=== PATIENT | male | born 1995 | race Caucasian/White ===

== ENCOUNTER 2018-02-07 16:20 | Emergency (ER) | payer OTHER, BC ==
[2018-02-07 16:26] VITALS: BP 146/77
[2018-02-07] MEDS ORDERED: CIPROFLOXACIN 250 MG TABLET PO STA (16:32)
--- NOTE | 2018-02-07 16:35 | ED Physician Documentation ---
PD HPI LOWER EXT INJURY - Stated complaint Stated Complaint: STEPPED ON NAIL R FT PX/SWELLING - Chief complaint Chief Complaint: Ext Problem - History obtained from History obtained from: Patient - History of Present Illness PD HPI LOW EXT INJURY LOCATION: Right, Foot Type of injury: Puncture wound (He stepped on a nail at work 2 days ago and has persistent pain. He is up-to-date on tetanus. No fevers.) Review of Systems Constitutional: denies: Fever, Chills Throat: reports: Reviewed and negative Cardiac: reports: Reviewed and negative PD PAST MEDICAL HISTORY - Past Medical History Past Medical History: No - Past Surgical History Past Surgical History: Yes - Present Medications Home Medications: Ambulatory Orders Medication Instructions Recorded Confirmed Ciprofloxacin HCl [Cipro] 500 mg PO BID #20 tablet 02/07/18 - Allergies Allergies/Adverse Reactions: Allergies Allergy/AdvReac Type Severity Reaction Status Date / Time No Known Drug Allergies Allergy Verified 02/07/18 16:34 - Social History Does the pt smoke?: Yes Smoking Status: Current every day smoker Does the pt drink ETOH?: Yes ETOH Use: Beer, Liquor Does the pt have substance abuse?: Yes Substance Use and Type: Marijuana - Immunizations Immunizations are current?: Yes - POLST Patient has POLST: No PD ED PE NORMAL - Vitals Vital signs reviewed: Yes - General General: Alert and oriented X 3, No acute distress - Extremities Extremities: Other (There is a puncture wound on the bottom of the first MTP without tenderness or limited range of motion.) - Neuro Neuro: Alert and oriented X 3, Normal speech Results - Vitals Vitals: Vital Signs - 24 hr 02/07/18 16:25 Temperature 37.3 C Heart Rate 87 Respiratory 16 Rate Blood Pressure 146/77 H O2 Saturation 98 Oxygen O2 Source Room air - Labs Labs: Microbiology 02/07/18 16:30 Wound Culture - Preliminary Foot - Right Procedures - Abscess I&D (location) Bottom of the right foot Preparation: Alcohol Incision: Other (It was debrided with sharp dissection, there was no pain as it was basically just into the callus of the foot pus was returned and it was washed out and there was little bit of sock material in it too.) PD MEDICAL DECISION MAKING - Sepsis Event Vital Signs: Vital Signs - 24 hr 02/07/18 16:25 Temperature 37.3 C Heart Rate 87 Respiratory 16 Rate Blood Pressure 146/77 H O2 Saturation 98 Oxygen O2 Source Room air Departure - Departure Disposition: 01 Home, Self Care Clinical Impression: Infected puncture wound of plantar aspect of foot Qualifiers: Encounter type: initial encounter Laterality: right Qualified Code(s): S91.331A - Puncture wound without foreign body, right foot, initial encounter Condition: Good Record reviewed to determine appropriate education?: Yes Instructions: ED Wound Puncture General Prescriptions: Ciprofloxacin HCl [Cipro] 500 mg PO BID #20 tablet Comments: Return on Sunday afternoon for wound check with me. Your blood pressure was elevated today on check into the emergency department. This does not mean that you have hypertension, it is a common phenomenon to come to the emergency department and have elevated blood pressure. I recommend that you see your primary care physician within the week to have it rechecked when you are feeling better. Forms: Activity restrictions Discharge Date/Time: 02/07/18 16:35
== END 2018-02-07 16:35 | disposition home or self-care (01) ==
LOC: ED 16:20
DX: S91.331A Puncture wound without foreign body, right foot, initial encounter (principal); R03.0 Elevated blood-pressure reading, without diagnosis of hypertension; F17.200 Nicotine dependence, unspecified, uncomplicated; W45.0XXA Nail entering through skin, initial encounter; Y99.0 Civilian activity done for income or pay
CPT/HCPCS: 1040M; 87070; 87205; 97597; 99283; A9270